=== PATIENT | male | born 1995 | race African-American/Black ===

== ENCOUNTER 2017-03-12 21:33 | Emergency (ER) | payer OTHER, SELFPAY ==
--- NOTE | 2017-03-12 22:41 | RAD ---
THREE VIEWS OF THE RIGHT ANKLE 03/12/17 INDICATION: Right ankle injury. FINDINGS: No acute fracture or subluxation is present. The ankle mortise and talar dome are preserved. Visuali zed aspects of the hindfoot appear within normal limits. IMPRESSION: No acute osseous abnormality. POS: [facility]US[facility]
== END 2017-03-12 22:49 | disposition home or self-care (01) ==
LOC: ERS 21:33
DX: S93.401A Sprain of unspecified ligament of right ankle, initial encounter (principal); X50.1XXA Overexertion from prolonged static or awkward postures, initial encounter